=== PATIENT | female | born 1985 | race American Indian/Alaskan Native ===

== ENCOUNTER 2021-11-24 08:52 | Emergency (ER) | payer SELFPAY ==
[2021-11-24] MEDS ORDERED: SODIUM CHLORIDE 0.9% 1000 ML 1,000 ML IV ONE (13:16)
[2021-11-24] MEDS ORDERED: ONDANSETRON 4 MG/2 ML INJ IV ONE ×2 (13:16→15:37)
[2021-11-24 14:14] LABS: Basophils # (Auto) 0.1 K/mm3 (0.0-0.1); Basophils % (Auto) 0.4 % (0.0-1.8); Hemoglobin 14.2 gm/dl (10.1-14.3); Lymphocytes # (Auto) 1.2 K/mm3 (1.2-5.4); Lymphocytes % (Auto) 9.7 % (13.4-35.0); Mean Corpuscular HGB Conc 33 % (30-34); Mean Corpuscular Volume 88 fl (79-97); Monocytes # (Auto) 0.7 K/mm3 (0.0-0.8); Monocytes % (Auto) 5.5 % (0.0-7.3); Platelet Count 332 K/mm3 (140-440); Red Cell Distribution Width 15.1 % (13.2-15.2)
[2021-11-24 14:22] LABS: Alanine Aminotransferase 13 units/L (7-56); Albumin 5.9 g/dL (3.9-5); BUN/Creatinine Ratio 26; Blood Urea Nitrogen 21 mg/dL (7-17); Calcium 10.8 mg/dL (8.4-10.2); Hemolysis Index 26
--- NOTE | 2021-11-24 14:46 | Emergency Department Report ---
ED N/V/D HPI - General Chief complaint: Nausea/Vomiting/Diarrhea Stated complaint: VOMITING Source: patient Mode of arrival: Ambulatory Limitations: No Limitations - History of Present Illness Initial comments: 36-year-old female presents to the ED complaining of nausea x 1 day , Patient states that she has a history of acid reflux. Patient states that she is visiting from out of town [place] and accidentally left her medication at home. She states that she was drinking wine and eating greasy food which always caused her acid reflux to flareup. She states that she has been very nauseated and vomited x1 this a.m. patient states that she has had similar episodes in the past. States that she normally goes to the ED and received Zofran and normal saline that normally relieved the episode. Patient is also asking for refill of Zofran. Patient is alert and oriented. No acute distress noted. No ill appearance noted. Patient denies any fever chills chest pain or shortness of breath. MD complaint: nausea Onset/Timin -: days(s) Associated Abdominal Pain: No Improves with: none Worsens with: none Associated Symptoms: denies other symptoms - Related Data Previous Rx's Medication Instructions Recorded Last Taken Type Ondansetron [Zofran ODT TAB] 8 mg PO Q12HR 3 Days #12 tab.rapdis 11/24/21 Unknown Rx Pantoprazole [Protonix TAB] 40 mg PO QDAY 30 Days #30 tablet 11/24/21 Unknown Rx Allergies Allergy/AdvReac Type Severity Reaction Status Date / Time No Known Allergies Allergy Unverified 11/24/21 09:13 ED Review of Systems ROS: Stated complaint: VOMITING Other details as noted in HPI Constitutional: denies: chills, fever Eyes: denies: eye pain, eye discharge, vision change ENT: denies: ear pain, throat pain Respiratory: denies: cough, shortness of breath, wheezing Cardiovascular: denies: chest pain, palpitations Endocrine: no symptoms reported Gastrointestinal: nausea, vomiting. denies: abdominal pain, diarrhea Genitourinary: denies: urgency, dysuria, discharge Musculoskeletal: denies: back pain, joint swelling, arthralgia Skin: denies: rash, lesions Neurological: denies: headache, weakness, paresthesias Psychiatric: denies: anxiety, depression Hematological/Lymphatic: denies: easy bleeding, easy bruising ED Past Medical Hx - Medications Home Medications: Home Medications Medication Instructions Recorded Confirmed Last Taken Type Ondansetron [Zofran ODT TAB] 8 mg PO Q12HR 3 Days #12 tab.rapdis 11/24/21 Unknown Rx Pantoprazole [Protonix TAB] 40 mg PO QDAY 30 Days #30 tablet 11/24/21 Unknown Rx ED Physical Exam - General Limitations: No Limitations General appearance: alert, in no apparent distress - Head Head exam: Present: atraumatic, normocephalic - Eye Eye exam: Present: normal appearance - ENT ENT exam: Present: mucous membranes moist - Neck Neck exam: Present: normal inspection - Respiratory Respiratory exam: Present: normal lung sounds bilaterally. Absent: respiratory distress - Cardiovascular Cardiovascular Exam: Present: regular rate, normal rhythm. Absent: systolic murmur, diastolic murmur, rubs, gallop - GI/Abdominal GI/Abdominal exam: Present: soft, normal bowel sounds - Extremities Exam Extremities exam: Present: normal inspection - Back Exam Back exam: Present: normal inspection - Neurological Exam Neurological exam: Present: alert, oriented X3 - Psychiatric Psychiatric exam: Present: normal affect, normal mood - Skin Skin exam: Present: warm, dry, intact, normal color. Absent: rash ED Course Vital Signs 11/24/21 11/24/21 09:16 16:36 Temperature 98.1 F 97.8 F Pulse Rate 60 67 Respiratory 16 16 Rate Blood Pressure 145/103 133/89 [Right] O2 Sat by Pulse 98 98 Oximetry ED Medical Decision Making - Lab Data Result diagrams: 11/24/21 13:46 11/24/21 13:46 - Medical Decision Making 36-year-old female presents to the ED complaining of nausea x 1 day , Patient st ates that she has a history of acid reflux. Patient states that she is visiting from out of town [place] and accidentally left her medication at home. She states that she was drinking wine and eating greasy food which always caused her acid reflux to flareup. She states that she has been very nauseated and vomited x1 this a.m. patient states that she has had similar episodes in the past. States that she normally goes to the ED and received Zofran and normal saline that normally relieved the episode. Patient is also asking for refill of Zofran. Patient is alert and oriented. No acute distress noted. No ill appearance noted. Patient denies any fever chills chest pain or shortness of breath. Patient was resting comfortable up to 3 hours waiting lab patient began to start to feel nauseated. She requested to have Protonix which she normally takes at home. Zofran 4mg given IM and Protonix 40 mg IV. Patient is resting quietly Rechecked the patient is resting quietly quietly and comfortable and feeling better. I discussed the results of diagnostic study, my clinical impression and the plan for further treatment with the patient. Patient agrees with plan and discharge at this present time. All question addressed. I have given the patient instruction regarding a diagnosis ,expectation ,follow- up and return precaution. I explained to the patient that emergent condition may arise and to return to the ED for new worsen and any new persisting condition. I have explained the importance of following up with the primary care physician or referral physician listed below has instructed. The patient verbalized understanding of discharge instruction. Abnormal Lab Results 11/24/21 11/24/21 11/24/21 13:46 13:46 13:46 WBC 11.9 H RBC 4.90 Hgb 14.2 Hct 43.0 H MCV 88 MCH 29 MCHC 33 RDW 15.1 Plt Count 332 Lymph % (Auto) 9.7 L [place] % (Auto) 5.5 Eos % (Auto) 0.0 Baso % (Auto) 0.4 Lymph # (Auto) 1.2 [place] # (Auto) 0.7 Eos # (Auto) 0.0 Baso # (Auto) 0.1 Seg Neutrophils % 84.4 H Seg Neutrophils # 10.0 H Sodium 140 Potassium 4.2 Chloride 96.1 L Carbon Dioxide 24 Anion Gap 24 BUN 21 H Creatinine 0.8 Estimated GFR > 60 BUN/Creatinine Ratio 26 Glucose 121 H Calcium 10.8 H Total Bilirubin 0.40 AST 16 ALT 13 Alkaline Phosphatase 70 Total Protein 9.0 H Albumin 5.9 H Albumin/Globulin Ratio 1.9 HCG, Quant < 2 Critical care attestation.: If time is entered above; I have spent that time in minutes in the direct care of this critically ill patient, excluding procedure time. ED Disposition Clinical Impression: Acid reflux disease Qualifiers: Esophagitis bleeding: unspecified whether hemorrhage Disposition: 01 HOME / SELF CARE / HOMELESS Is pt being admited?: No Does the pt Need Aspirin: No Condition: Stable Instructions: Gastroesophageal Reflux Disease, Adult, [id number] Additional Instructions: Decrease alcohol intake Take medication has prescribed Follow-up with your primary care doctor upon arriving back in [place] Prescriptions: Pantoprazole [Protonix TAB] 40 mg PO QDAY 30 Days #30 tablet Ondansetron [Zofran ODT TAB] 8 mg PO Q12HR 3 Days #12 tab.rapdis Referrals: OJ JOSE MD [Primary Care Provider] - 3-5 Days BHAVESH GIBBS MD [Staff Physician] - 3-5 Days Time of Disposition: 16:12
[2021-11-24] MEDS ORDERED: PANTOPRAZOLE 40 MG INJ IV ONE (15:37)
[2021-11-24 16:38] VITALS: BP 133/89
== END 2021-11-24 16:36 | disposition home or self-care (01) ==
LOC: ED 08:52
DX: K21.9 Gastro-esophageal reflux disease without esophagitis (principal)
CPT/HCPCS: 36415; 80053; 84702; 85025; 96361; 96374; 96375; 96376; 99283; C9113; J2405; J7030